=== PATIENT | female | born 1990 ===

== ENCOUNTER 2023-12-03 07:23 | Inpatient (IN) | payer MEDICAID ==
[~2023-12-03] VITALS: Ht 172.7 cm; Wt 51.4 kg
[2023-12-03] MEDS ORDERED: ZOLPIDEM TARTRATE 10 MG TABLET PO PRN (08:00)
[2023-12-03] MEDS: LORazepam 2 MG TABLET PO PRN (11:20)
[2023-12-03] MEDS: HALOPERIDOL 5 MG TABLET PO PRN (11:20)
[2023-12-03 11:42] VITALS: BP 119/77; PULSE 80; RESP 20
[2023-12-03] MEDS ORDERED: DOCUSATE SODIUM 100 MG CAPSULE PO PRN (19:30)
[2023-12-03] MEDS ORDERED: PETROLATUM,WHITE 28 GM JELLY TP PRN (19:30)
[2023-12-03] MEDS ORDERED: IBUPROFEN 400 MG TABLET PO PRN (19:30)
[2023-12-03] MEDS ORDERED: ALBUTEROL SULFATE HFA 90 MCG/PUFF 8 GM INHALER IH PRN (19:30)
[2023-12-03] MEDS ORDERED: ONDANSETRON HCL 4 MG TABLET PO PRN (19:30)
[2023-12-03] MEDS ORDERED: MAGNESIUM HYDROXIDE SUSPENSION 30 ML UDCUP PO PRN (19:30)
[2023-12-03] MEDS ORDERED: CloNIDine HCL 0.1 MG TABLET PO PRN (19:30)
[2023-12-03] MEDS ORDERED: LOPERAMIDE HCL 2 MG CAPSULE PO PRN (19:30)
[2023-12-03] MEDS ORDERED: NICOTINE 14 MG/24 HOUR PATCH TD PRN (19:30)
[2023-12-03] MEDS ORDERED: GuaiFENesin/D-METHORPHAN [SUGAR-FREE] 200-20MG/10 ML SYRUP UDCUP PO PRN (19:30)
[2023-12-03] MEDS ORDERED: ACETAMINOPHEN 325 MG TABLET PO PRN (19:30)
[2023-12-03 20:46] VITALS: BP 126/72; PULSE 72; RESP 18; TEMP 97.6; O2SAT 99
[2023-12-04 07:45] LABS: BASOPHILS % (AUTO) 0.4 % (0.0-2.0); EOSINOPHILS % (AUTO) 0.6 % (1.0-6.0); HEMOGLOBIN 12.4 g/dL (12.0-16.0); LYMPHOCYTES # (AUTO) 1.7 K/uL (1.0-4.8); LYMPHOCYTES % (AUTO) 16.8 % (22.0-44.0); MEAN CORPUSCULAR HEMOGLOBIN 31.2 pg (26.0-34.0); MEAN CORPUSCULAR HGB CONC 33.5 G/dL (31.0-37.0); MEAN CORPUSCULAR VOLUME 93 fL (80-100); MONOCYTES # (AUTO) 0.6 K/uL (0.1-1.0); MONOCYTES % (AUTO) 5.7 % (2.0-9.0); NEUTROPHILS # (AUTO) 7.9 K/uL (1.8-7.7); NEUTROPHILS % (AUTO) 76.5 % (40.0-70.0); PLATELET COUNT (AUTO) 246 K/uL (150-450); RED BLOOD CELL COUNT(AUTO) 3.98 MIL/uL (4.00-5.20); RED CELL DISTRIBUTION WIDTH 13.4 % (11.5-14.5); WHITE BLOOD COUNT (AUTO) 10.3 K/uL (4.5-11.0)
[2023-12-04 08:08] LABS: HEMOGLOBIN A1C 5.2 % (3.8-5.6)
[2023-12-04 08:18] LABS: ALANINE AMINOTRANSFERASE 27 U/L (12-78); ALBUMIN 3.5 g/dL (3.4-5.0); ALKALINE PHOSPHATASE 59 U/L (46-116); ANION GAP 10 mmol/L (8-16); ASPARTATE AMINOTRANSFERASE 21 U/L (15-37); BILIRUBIN,TOTAL 0.8 mg/dL (0.1-1.0); CARBON DIOXIDE 26 mmol/L (22-29); CHLORIDE 105 mmol/L (98-107); CHOL/HDL RATIO 2.5 (3.9-5.7); CHOLESTEROL 200 mg/dL (131-200); CREATININE 0.45 mg/dL (0.60-1.30); FREE T4 (FREE THYROXINE) 1.23 ng/dL (0.76-1.46); GLOMERULAR FILTR. RATE CALC > 60 mL/min (>60); GLUCOSE,RANDOM 80 mg/dL (70-110); HCG,QUANTITATIVE < 1 mIU/mL (0-6); HDL CHOLESTEROL 81 mg/dL (40-60); LDL CHOL (CALC.) 110 mg/dL (0-130); POTASSIUM 3.9 mmol/L (3.5-5.1); SODIUM SERUM 141 mmol/L (136-145); THYROID STIMULATING HORMONE 1.25 uIU/mL (0.36-3.74); TOTAL PROTEIN, SERUM 6.3 g/dL (6.4-8.2); TRIGLYCERIDES 44 mg/dL (15-150); UREA NITROGEN, BLOOD 10 mg/dL (7-18)
[2023-12-04 08:20] VITALS: RESP 16
[2023-12-04] MEDS ORDERED: OLAN20TA35 PO (11:10)
[2023-12-04] MEDS ORDERED: GABA-1181 PO (11:15)
[2023-12-04] MEDS ORDERED: PROP10TA72 PO (11:15)
[2023-12-04] MEDS ORDERED: CHOL100062 PO (11:15)
[2023-12-04] MEDS: OLANZapine 10 MG TABLET PO SCH (14:21)
[2023-12-04] MEDS ORDERED: HALOPERIDOL LACTATE 5 MG/ML VIAL ONE (17:56)
[2023-12-04] MEDS: LORazepam 2 MG/ML VIAL IM ONE (18:12)
[2023-12-04] MEDS: DiphenhydrAMINE HCL 50 MG/ML VIAL IM ONE (18:12)
[2023-12-04] MEDS: HALOPERIDOL LACTATE 5 MG/ML VIAL IM ONE (18:17)
[2023-12-04 20:16] VITALS: RESP 18
[2023-12-05 08:36] VITALS: BP 129/83; PULSE 100; RESP 16; TEMP 97.1; O2SAT 100
[2023-12-05] MEDS: INFLUENZA VIRUS VACCINE QVS 2023-24 (6MO+)/PF 60 MCG/0.5 ML SYRINGE IM. ONE (09:00)
[2023-12-05] MEDS ORDERED: LORazepam 2 MG/ML VIAL ONE (13:24)
[2023-12-05] MEDS ORDERED: DiphenhydrAMINE HCL 50 MG/ML VIAL ONE ×2 (13:25)
[2023-12-05] MEDS ORDERED: HALOPERIDOL LACTATE 5 MG/ML VIAL ONE (13:26)
[2023-12-05] MEDS: LORazepam 2 MG/ML VIAL IM ONE (13:36)
[2023-12-05] MEDS: DiphenhydrAMINE HCL 50 MG/ML VIAL IM ONE (13:37)
[2023-12-05] MEDS: HALOPERIDOL LACTATE 5 MG/ML VIAL IM ONE (13:37)
[2023-12-05 20:20] VITALS: RESP 18
[2023-12-06 08:25] VITALS: RESP 18
[2023-12-06] MEDS: DiphenhydrAMINE HCL 50 MG/ML VIAL IM ONE (16:25)
[2023-12-06] MEDS: LORazepam 2 MG/ML VIAL IM ONE (16:26)
[2023-12-06] MEDS: HALOPERIDOL LACTATE 5 MG/ML VIAL IM ONE (16:26)
[2023-12-06 23:50] VITALS: RESP 16
[2023-12-07 08:26] LABS: APPEARANCE,URINE CLEAR (CLEAR); BILIRUBIN,URINE NEGATIVE (NEGATIVE); COLOR,URINE YELLOW (YELLOW); GLUCOSE, URINE (UA) NEGATIVE (NEGATIVE); KETONES,URINE NEGATIVE (NEGATIVE); LEUKOCYTE ESTERASE ,URINE NEGATIVE (NEGATIVE); NITRATE,URINE NEGATIVE (NEGATIVE); OCCULT BLOOD,URINE NEGATIVE (NEGATIVE); PROTEIN,URINE NEGATIVE (NEGATIVE); SPECIFIC GRAVITIY, URINE 1.014 (1.003-1.030); UROBILINOGEN,URINE <=1.0 mg/dL (<=1.0)
[2023-12-07 08:59] VITALS: BP 128/74; PULSE 90; RESP 16; TEMP 98; O2SAT 100
[2023-12-07] MEDS ORDERED: LORazepam 2 MG/ML VIAL ONE (09:54)
[2023-12-07] MEDS ORDERED: HALOPERIDOL LACTATE 5 MG/ML VIAL ONE (09:54)
[2023-12-07] MEDS ORDERED: DiphenhydrAMINE HCL 50 MG/ML VIAL ONE (09:54)
[2023-12-07] MEDS: HALOPERIDOL LACTATE 5 MG/ML VIAL IM ONE (10:33)
[2023-12-07] MEDS: DiphenhydrAMINE HCL 50 MG/ML VIAL IM ONE (10:33)
[2023-12-07] MEDS: LORazepam 2 MG/ML VIAL IM ONE (10:33)
[2023-12-07 20:48] VITALS: BP 98/64; PULSE 79; RESP 18; TEMP 97.7; O2SAT 100
[2023-12-08] MEDS: LORazepam 2 MG/ML VIAL IM ONE (09:44)
[2023-12-08] MEDS: DiphenhydrAMINE HCL 50 MG/ML VIAL IM ONE (09:44)
[2023-12-08] MEDS: HALOPERIDOL LACTATE 5 MG/ML VIAL IM ONE (09:44)
[2023-12-08 14:45] VITALS: BP 100/69; PULSE 93; RESP 18; TEMP 97.9
[2023-12-08 20:00] VITALS: BP 107/67; PULSE 78; RESP 19; TEMP 97.6; O2SAT 99
[2023-12-09 08:29] VITALS: RESP 18
[2023-12-09 20:42] VITALS: BP 95/62; PULSE 72; RESP 18; TEMP 97.2
[2023-12-10 08:24] VITALS: RESP 16
[2023-12-10] MEDS: GABAPENTIN 300 MG CAPSULE PO SCH (13:43)
[2023-12-11 00:16] VITALS: BP 96/57; PULSE 83; RESP 17; TEMP 97.8
[2023-12-11] MEDS: MULTIVITAMINS WITH MINERALS, THERAPEUTIC TABLET PO SCH (08:17)
[2023-12-11 08:23] VITALS: RESP 16
[2023-12-11 20:49] VITALS: BP 102/60; PULSE 78; RESP 17; TEMP 98; O2SAT 98
[2023-12-12 08:18] VITALS: BP 122/73; PULSE 80; RESP 17; TEMP 97.7; O2SAT 100
[2023-12-12 20:34] VITALS: BP 117/75; PULSE 75; RESP 18; TEMP 97.6; O2SAT 98
[2023-12-13 08:19] VITALS: BP 115/72; PULSE 84; RESP 16; TEMP 98.9; O2SAT 97
[2023-12-13 23:25] VITALS: BP 102/65; PULSE 75; RESP 16; TEMP 98; O2SAT 98
[2023-12-14 08:22] VITALS: BP 116/73; PULSE 78; RESP 16; TEMP 98.1; O2SAT 99
[2023-12-14 20:26] VITALS: BP 128/62; PULSE 74; RESP 17; TEMP 97.8; O2SAT 98
[2023-12-15 08:21] VITALS: BP 109/68; PULSE 71; RESP 18; TEMP 98.2; O2SAT 96
[2023-12-15 12:07] LABS: HEPATITIS C AB (EIA) Non Reactive (Non Reactive)
[2023-12-15] MEDS ORDERED: OLAN10TA74 PO (13:26)
[2023-12-15] MEDS ORDERED: GABA-1181 PO (13:26)
[2023-12-15] MEDS: MAG HYDROX/ALUMINUM HYD/SIMETH ES 30 ML SUSPENSION UDCUP PO PRN (14:58)
== END 2023-12-15 16:15 | disposition home or self-care (01) | DRG 750 ==
LOC: B3A 07:44
PROVIDERS: ADMIT Psychiatry & Neurology Psychiatry; ATTEND Psychiatry & Neurology Psychiatry
PROC: GZHZZZZ Group Psychotherapy (ICD-10-PCS; principal; 2023-12-04)
PROC: GZ56ZZZ Individual Psychotherapy, Supportive (ICD-10-PCS; 2023-12-04)
DX: F25.0 Schizoaffective disorder, bipolar type (principal); Z91.148 Patient's other noncompliance with medication regimen for other reason; F10.10 Alcohol abuse, uncomplicated; F12.10 Cannabis abuse, uncomplicated; F41.9 Anxiety disorder, unspecified; G47.00 Insomnia, unspecified; Y90.9 Presence of alcohol in blood, level not specified; Z79.899 Other long term (current) drug therapy
CPT/HCPCS: 80053; 80061; 81003; 83036; 84439; 84443; 84702; 85025; 86803; 87340; J1200; J1630; J2060

== ENCOUNTER 2023-12-03 08:36 | Emergency (ER) | payer MEDICAID, OTHER ==
[~2023-12-03] VITALS: Ht 162.6 cm; Wt 59.1 kg
[2023-12-03 09:01] VITALS: BP 150/81; PULSE 95; RESP 18; TEMP 98
[2023-12-03 09:28] LABS: COVID AG,FIA SOURCE NASAL SWAB
[2023-12-03 10:04] LABS: SARS-COV2 (COVID) ANTIGEN,FIA Negative (Negative)
[2023-12-04] MEDS ORDERED: OLAN20TA35 PO (11:10)
[2023-12-04] MEDS ORDERED: GABA-1181 PO (11:15)
[2023-12-04] MEDS ORDERED: PROP10TA72 PO (11:15)
[2023-12-04] MEDS ORDERED: CHOL100062 PO (11:15)
== END 2023-12-03 10:39 | disposition short-term general hospital (02) ==
LOC: EMS 08:36
DX: F29 Unspecified psychosis not due to a substance or known physiological condition (principal); Z97.5 Presence of (intrauterine) contraceptive device; Z20.822 Contact with and (suspected) exposure to COVID-19
CPT/HCPCS: 76856; 99284; Z7502